=== PATIENT | female | born 1995 | race Caucasian/White ===

== ENCOUNTER 2025-08-07 09:08 | Outpatient (CLI) | payer OTHER, SELFPAY ==
[2025-08-09 14:29] LABS: HPV Source Cervical
[2025-08-09 20:44] LABS: HPV Genotype 16 by TMA Not Detected; HPV Genotype 18/45 by TMA Not Detected
[2025-08-10 08:06] LABS: Pap Test Digital Imaging Done
== END 2025-08-07 09:09 | disposition home or self-care (01) ==
PROVIDERS: Visit Provider Obstetrics & Gynecology
DX: Z12.4 Encounter for screening for malignant neoplasm of cervix (principal); O20.9 Hemorrhage in early pregnancy, unspecified; Z11.3 Encounter for screening for infections with a predominantly sexual mode of transmission; N64.4 Mastodynia; Z13.6 Encounter for screening for cardiovascular disorders
CPT/HCPCS: 80061; 84702; 87491; 87591; 87624; 87625; 88141; 88142; 88175

== ENCOUNTER 2025-08-10 11:41 | Outpatient (CLI) | payer OTHER, SELFPAY | END 2025-08-10 11:42 | disposition home or self-care (01) | LOC: NFLDREF 08-11 17:59 | PROVIDERS: Visit Provider Obstetrics & Gynecology | DX: N64.4 Mastodynia (principal) | CPT/HCPCS: 84702 ==

== ENCOUNTER 2025-09-13 13:54 | Outpatient (CLI) | payer OTHER, SELFPAY ==
--- NOTE | 2025-09-13 14:00 | CRLHL7_ITS ---
For Patients: As a result of the Cures Act, medical imaging exams and procedure reports are released immediately into your electronic medical record. You may view this report before your referring provider. If you have questions, please contact your health care provider. OB ULTRASOUND INDICATION: Dating and viability. TECHNIQUE: Real time grayscale imaging of the fetus was performed. Transvaginal. Transvaginal imaging performed to better demonstrate the endometrium and ovaries. LMP: 07/09/2025. EVELIO by LMP: 04/15/2026. GA: 9 w, 3 d. Previous US: No. CRL: 2.3 cm. 9 w 0 d. EVELIO: 04/18/2026. FHR: 180 BPM. Gestational sac: 3.6 cm. Appears within normal limits. Yolk sac: 4.7 mm. Appears within normal limits. Right ovary: Within normal limits. 3.6 x 2.2 x 2.1 cm. Left ovary: Within normal limits. 4.6 x 2.3 x 2.8 cm. CL. IMPRESSION: 1. Single living intrauterine measures 9 weeks 0 days with sonographic due date 04/18/2026. heart rate 180 beats per minute. 2. Inferior subchorionic hemorrhage measures 14 x 5 x 9 mm. 3. Corpus luteal cyst left ovary measures 3 cm. Willian Osorio M.D. Diagnostic Radiologist [employer] [email or web address] ASAF/bita sunshine/Dictated by: Willian Osorio MD @ 09/13/2025 3:33:00 PM (Electronically Signed)
== END 2025-09-13 13:55 | disposition home or self-care (01) ==
LOC: US 13:55
PROVIDERS: Visit Provider Physician Assistant
DX: O20.9 Hemorrhage in early pregnancy, unspecified (principal); O34.81 Maternal care for other abnormalities of pelvic organs, first trimester; N83.12 Corpus luteum cyst of left ovary; Z3A.09 9 weeks gestation of pregnancy
CPT/HCPCS: 76817